=== PATIENT | female | born 1990 | race Two or more races ===

== ENCOUNTER 2025-08-20 18:24 | Emergency (ER) | payer OTHER ==
[~2025-08-20] VITALS: Ht 149.9 cm; Wt 45.4 kg
[2025-08-20] MEDS ORDERED: TRAMADOL HCL 50 MG TABLET PO ONE (19:45)
[2025-08-20 21:27] LABS: BASO % 0.8 % (0.1-1.2); EOS # 0.01 (0.04-0.54); EOS % 0.1 % (0.7-7.0); LYMPH # 2.47 (1.18-3.74); LYMPH % 27.3 % (19.3-53.1); MEAN PLATELET VOLUME 9.90 fl (9.4-12.4); MONO # 0.36 (0.24-0.82); MONO % 4.0 % (4.7-12.5); NEUT # 6.12 (1.56-6.13); NEUT % 67.6 % (34.0-71.1); RED CELL DISTRIBUTION WIDTH 11.4 % (11.6-14.4)
[2025-08-20 21:29] LABS: URINE APPEARANCE Clear; URINE BILIRRUBIN Negative (NEGATIVE); URINE BLOOD Negative; URINE COLOR Yellow; URINE GLUCOSE Negative (NEGATIVE); URINE KETONE 15 (NEGATIVE); URINE LEUKOCYTE Negative; URINE NITRATE Negative; URINE PROTEIN Negative (NEGATIVE); URINE UROBILINOGEN 0.2 E.U./dl
[2025-08-20 21:32] LABS: URINE BACTERIA 16.7 uL (0.0-1933); URINE WBC 2.2 uL (0.0-23.2)
[2025-08-20 21:56] LABS: URINE CAST 0.00 uL (0.0-1.40); URINE EPITHELIAL CELLS 0.9 uL (0.0-38.8); URINE RBC 0.4 uL (0.0-20.8)
[2025-08-20 21:58] LABS: ALT/SGPT 30 U/L (12-78); AST/SGOT 11 U/L (15-37); BILIRUBIN TOTAL 0.72 mg/dL (0.3-1.2); BUN CREA RATIO 13 (7.0-25.0); CREATININE SERUM 0.60 mg/dL (0.55-1.02); GFR 115.13; GLOBULINA 3.4 G/DL (2.4-3.5); GLUCOSE FASTING 102 mg/dL (65-100); OSMOLALITY SERUM 276 MOSM/KG (275-295); TSH 0.752 uIU/mL (0.358-3.74)
[2025-08-20 22:04] LABS: HCG QUANTITATIVE < 1 mUI/mL (1-3)
[2025-08-20] MEDS ORDERED: NEURONTIN300 MG PO (23:03)
== END 2025-08-20 23:59 | disposition home or self-care (01) ==
LOC: ER 18:25
PROVIDERS: General Practice
DX: M54.12 Radiculopathy, cervical region (principal); R20.0 Anesthesia of skin; R42 Dizziness and giddiness